=== PATIENT | female | born 1990 | race American Indian/Alaskan Native ===

== ENCOUNTER 2016-09-19 16:09 | Emergency (ER) | payer MEDICAID ==
[2016-09-19] MEDS ORDERED: MOTRIN PO ONE (19:15)
--- NOTE | 2016-09-19 19:26 | Emergency Department Report ---
HPI - General Chief Complaint: Upper Respiratory Infection Time Seen by Provider: 09/19/16 19:10 - HPI HPI: This is a 26-year-old female here complaining of fever and chills and cold symptoms since yesterday. She says until she finishes a hard time breathing. Reports body aches etc. 10. Denies any chest pain she says she took Mucinex at 11 AM that didn't help she is complaining of generalized pain all over and pain in her back when she takes a deep breath. Patient denies any medical problems. She does not take any medication. Denies any sore throat difficulty swallowing or drooling. Patient is a smoker ED Past Medical Hx - Past Medical History Previous Medical History?: No Hx Hypertension: No Hx Diabetes: No Hx Deep Vein Thrombosis: No Hx Renal Disease: No Hx Sickle Cell Disease: No Hx Seizures: No Hx Asthma: No Hx HIV: No Additional medical history: Vaginal delivery 09-03-2015 - Surgical History Past Surgical History?: No - Family History Family history: no significant - Social History Smoking Status: Current Every Day Smoker Substance Use Type: None - Medications Home Medications: Home Medications Medication Instructions Recorded Confirmed Last Taken Type Fluticasone [Flonase] 1 spray NS QDAY #1 bottle 09/19/16 Unknown Rx Ibuprofen [Motrin] 600 mg PO Q8H PRN #15 tablet 09/19/16 Unknown Rx guaiFENesin/CODEINE [Robitussin AC] 10 ml PO QHS PRN #70 oral.liqd 09/19/16 Unknown Rx predniSONE [Deltasone] 20 mg PO QDAY #5 tab 09/19/16 Unknown Rx ED Review of Systems ROS: Stated complaint: DEMETRI Other details as noted in HPI Comment: All other systems reviewed and negative Constitutional: chills, fever Eyes: denies: eye pain, eye discharge ENT: congestion. denies: ear pain, throat pain, epistaxis Respiratory: cough, shortness of breath, SOB at rest. denies: SOB with exertion , stridor, wheezing Cardiovascular: denies: chest pain, palpitations, edema, syncope Gastrointestinal: denies: abdominal pain, nausea, vomiting, diarrhea, constipation Musculoskeletal: back pain, arthralgia Skin: denies: rash Neurological: denies: headache, weakness, numbness, paresthesias, confusion, abnormal gait, vertigo Physical Exam - Physical Exam Vital Signs: Vital Signs 09/19/16 16:58 Temperature 100.1 F H Pulse Rate 111 H Respiratory 18 Rate Blood Pressure 120/77 O2 Sat by Pulse 98 Oximetry General: This is a 26-year-old female well-nourished well-developed in no acute distress. Physical Exam: Head: Normocephalic atraumatic Mouth: Moist, no pharyngeal exudate or erythema. Uvula is midline and oral airway is patent. No facial swelling. No peritonsillar abscesses. Neck: Supple, no C-spine tenderness, no tracheal deviation. Nontender to palpate. no adenopathy Nose: Moist, positive mucosa swelling with erythema. Bilateral frontal and maxillary sinuses nontender to palpate. No nasal drainage. Ears: BiLateral TMs congested without erythema. Bilateral EAC without any redness and no drainage. Abdomen: Soft, nontender to palpate in all quadrants, normal bowel sounds in all quadrant and negative CVA tenderness bilaterally. Back: No vertebral or paraspinal tenderness. No saddle anesthesia. Patient able to ambulate without any difficulties. Negative SLR bilaterally. Eyes: Bilateral pupils equal and reactive to light, bilateral EOM intact. Bilateral sclera and conjunctiva without injection. Normal accommodation. No nystagmus Lungs: Clear to auscultate bilaterally no rhonchi wheezes or rales. Normal work of breathing .positive dry cough. extremity; No CCE. +2 pulses. No neurovascular compromise Cardiovascular: S1-S2, tachycardic at 111 suspect from fever .regular rhythm. No murmurs. Skin: clean Dry and intact no rash no lesions Psych: Normal mood and behavior ED Course Vital Signs 09/19/16 16:58 Temperature 100.1 F H Pulse Rate 111 H Respiratory 18 Rate Blood Pressure 120/77 O2 Sat by Pulse 98 Oximetry Vital Signs 09/19/16 09/19/16 16:58 20:56 Temperature 100.1 F H Pulse Rate 111 H 67 Respiratory 18 16 Rate Blood Pressure 120/77 Blood Pressure 95/57 [Left] O2 Sat by Pulse 98 95 Oximetry - Reevaluation(s) Reevaluation #1: 09/19/16 20:15 Patient was given Motrin 800 mg by mouth in emergency room for elevated temperature. She is also given Xopenex 1.25 mg and Atrovent 0.5 mg nebulizer treatments. Reevaluation #2: 09/19/16 21:04 Vital Signs 09/19/16 09/19/16 09/19/16 16:58 20:56 21:04 Temperature 100.1 F H Pulse Rate 111 H 67 84 Respiratory 18 16 Rate Blood Pressure 120/77 Blood Pressure 95/57 102/69 [Left] O2 Sat by Pulse 98 95 Oximetry ED Medical Decision Making - Lab Data Influenza A and B- - Radiology Data Radiology results: report reviewed Chest x-ray revealed no acute cardiopulmonary processes - Medical Decision Making ED course: Discussed the patient that her chest x-ray was negative for any cardiopulmonary disease. I also discussed with her. Test is negative. Discussed with her that she has a viral upper respiratory tract infection and will be treated with steroids, Flonase and cough medicine. Patient was given Xopenex 1.25 mg and Atrovent 0.5 mg nebulizer in emergency room. She is given Motrin 800 mg by mouth for fever. She voices understanding of discharge instruction discharged home with prescription for Flonase, start steroids and guaifenesin with codeine Critical care attestation.: If time is entered above; I have spent that time in minutes in the direct care of this critically ill patient, excluding procedure time. ED Disposition Clinical Impression: Cough Upper respiratory infection Qualifiers: URI type: unspecified URI Qualified Code(s): J06.9 - Acute upper respiratory infection, unspecified Disposition: DISCHARGED TO HOME OR SELFCARE Is pt being admited?: No Does the pt Need Aspirin: No Condition: Stable Instructions: Upper Respiratory Infection (ED), Acute Cough (ED) Additional Instructions: Please increase her fluid intake Prescriptions: guaiFENesin/CODEINE [Robitussin AC] 10 ml PO QHS PRN #70 oral.liqd PRN Reason: Cough Fluticasone [Flonase] 1 spray NS QDAY #1 bottle Ibuprofen [Motrin] 600 mg PO Q8H PRN #15 tablet PRN Reason: Pain predniSONE [Deltasone] 20 mg PO QDAY #5 tab Referrals: PRIMARY CARE,MD [Primary Care Provider] - 3-5 Days Forms: Accompanied Note, Work/School Release Form(ED)
--- NOTE | 2016-09-19 19:57 | XRay Report ---
FINAL REPORT PROCEDURE: XR CHEST ROUTINE 2V TECHNIQUE: Two view PA lateral chest HISTORY: DEMETRI COMPARISON: No prior studies are available for comparison. FINDINGS: Heart is not enlarged. The lungs are clear. Mediastinum normal. IMPRESSION: No acute cardiopulmonary process seen at this time
[2016-09-19] MEDS ORDERED: ATROVENT IH ONE (20:08)
[2016-09-19] MEDS ORDERED: XOPENEX IH ONE (20:08)
[2016-09-19 21:05] VITALS: BP 102/69
== END 2016-09-19 21:12 | disposition home or self-care (01) ==
LOC: ED 16:09
DX: J06.9 Acute upper respiratory infection, unspecified (principal); F17.200 Nicotine dependence, unspecified, uncomplicated
CPT/HCPCS: 71020; 87400; 94640; 99283